=== PATIENT | female | born 1970 | race Caucasian/White ===

== ENCOUNTER 2019-05-26 23:51 | Emergency (ER) | payer SELFPAY ==
[~2019-05-26] VITALS: Ht 165.1 cm; Wt 75.0 kg
[2019-05-27 00:08] VITALS: Ht 165.1 cm; Wt 75.0 kg
[2019-05-27] MEDS ORDERED: MENEST1.25 MG PO (00:10)
[2019-05-27] MEDS ORDERED: TOPROL XL50 MG PO (00:10)
[2019-05-27] MEDS ORDERED: HYDROCODON-ACE1 EA10 PO (00:11)
[2019-05-27] MEDS ORDERED: ROBAXIN500 MG PO (00:11)
[2019-05-27] MEDS ORDERED: FUROSEMIDE20 MG PO (00:12)
[2019-05-27] MEDS ORDERED: ZOFRAN4 MG PO (00:12)
[2019-05-27] MEDS ORDERED: IBUPROFEN800 MG PO (00:29)
[2019-05-27] MEDS ORDERED: CYCLOBENZAPRINE10 MG PO (00:29)
[2019-05-27 00:39] VITALS: BP 131/88
== END 2019-05-27 00:39 | disposition home or self-care (01) ==
LOC: D.ER 23:51
DX: S46.002A Unspecified injury of muscle(s) and tendon(s) of the rotator cuff of left shoulder, initial encounter (principal); X58.XXXA Exposure to other specified factors, initial encounter; Y93.89 Activity, other specified; Y92.89 Other specified places as the place of occurrence of the external cause; M79.18 Myalgia, other site